=== PATIENT | female | born 1965 | race Caucasian/White ===

== ENCOUNTER 2017-05-27 07:50 | Outpatient (CLI) | payer OTHER | END 2017-05-27 07:51 | disposition home or self-care (01) | LOC: BICMAMMO 07:50 | PROVIDERS: ATTEND Obstetrics & Gynecology | DX: Z12.31 Encounter for screening mammogram for malignant neoplasm of breast (principal) | CPT/HCPCS: 77063; 77067; G0202 ==

== ENCOUNTER 2017-06-22 08:00 | Outpatient (CLI) | payer OTHER | END 2017-06-22 08:01 | disposition home or self-care (01) | LOC: BICMAMMO 08:00 | PROVIDERS: ATTEND Obstetrics & Gynecology | DX: N63.20 Unspecified lump in the left breast, unspecified quadrant (principal); N63.10 Unspecified lump in the right breast, unspecified quadrant; R92.8 Other abnormal and inconclusive findings on diagnostic imaging of breast | CPT/HCPCS: 77066; G0204; G0279 ==

== ENCOUNTER 2017-09-14 13:24 | Outpatient (CLI) | payer OTHER ==
--- NOTE | 2017-09-14 17:53 | MRI ---
CERVICAL SPINE MRI WITHOUT CONTRAST: 09/14/16 HISTORY: Cervical radiculopathy. Patient was lifting billiard table and fell and it fell on her two weeks ago. Pain and numbness. COMPARISON: 06/30/15. TECHNIQUE: Cervical spine MRI is performed without intravenous gadolinium administration. Multisequential, multi planar imaging is performed. FINDINGS: Appropriate T1 marrow signal intensity of the cervical vertebrae. Cervical spine vertebral body heigh t is maintained. No fracture. Stable fusion/incomplete segmentation of C6-C7. Grade I anterolisthesis of C3 upon C4. No significant STIR hyperintensity to suggest edema or ligamentous injury. Visualized brain parenchyma, cervicomedullary junction, cervical cord, and the upper thoracic cord yuan ve a normal size and signal intensity. C2-C3: No significant disc osteophyte complex. No significant central canal stenosis or foraminal sandie rowing. C3-C4: No significant disc osteophyte complex. No significant central canal stenosis. Right neural fo ramen is patent. Mild left foraminal narrowing due to degenerative change of the uncovertebral joint and facet hypertrophy. C4-C5: No significant disc osteophyte complex. No significant central canal stenosis. Degenerative ch nelda in bilateral uncovertebral joints results in mild to moderate right and mild left foraminal narr owing. C5-C6: No significant disc osteophyte complex. There is a broad based disc osteophyte complex without significant central canal stenosis. Degenerative change in bilateral uncovertebral joints results in moderate bilateral foraminal narrowing. C6-C7: No significant central canal stenosis or foraminal narrowing. C7-T1: Broad based disc osteophyte complex without significant central canal stenosis. Neural foramin a are mildly narrowed. IMPRESSION: 1. Degenerative changes cervical spine as above. 2. No MR evidence of cervical spine fracture. 3. Grade I anterolisthesis of C3 upon C4. 4. Stable fusion/incomplete segmentation of C6-C7. POS: [facility]
== END 2017-09-14 13:25 | disposition home or self-care (01) ==
LOC: SCSMRI 13:24
PROVIDERS: ATTEND Specialist
DX: M47.22 Other spondylosis with radiculopathy, cervical region (principal); M43.12 Spondylolisthesis, cervical region; Z98.1 Arthrodesis status
CPT/HCPCS: 72141